=== PATIENT | male | born 1960 | race Hispanic/Latino ===

== ENCOUNTER 2023-05-05 15:46 | Inpatient (IN) | payer OTHER, SELFPAY ==
[2023-05-05 16:30] LABS: Hematocrit 35.8 % (42.0-52.0); Hemoglobin 12.3 g/dL (14.0-18.0); Manual Diff?? YES; Mean Corpuscular HGB CONC 34.4 g/dL (32.0-36.0); Mean Corpuscular Hemoglobin 27.8 pg (27.0-31.0); Mean Platelet Volume 10.2 fL (7.4-10.4); Platelet Count 614 10x3/uL (130-400); RBC Distribution Width 12.7 % (11.5-14.5); Red Blood Cell (RBC) Count 4.42 mill/uL (4.70-6.10); White Blood Cell (WBC) Count 26.6 10x3/uL (4.8-10.8)
[2023-05-05 16:34] LABS: Delete Auto Diff?? YES
[2023-05-05 16:53] LABS: Band 2 % (5-11); CellaVision Operator ID LAB.KB; Eosinophils 1 % (0-10); Lymphocytes 1 % (21-51); Monocytes 1 % (0-10); Neutrophil 95 % (42-75); Platelet Adequacy Comment Platelets Increased; Polychromasia SLIGHT = 2-3 cells HPF (0-2); Total Cell Count 101
[2023-05-05 17:02] LABS: ALT (SGPT) 66 U/L (8-55); AST (SGOT) 72 U/L (5-34); Albumin 2.6 g/dL (3.5-5.0); Alkaline Phosphatase 265 U/L (40-110); Anion Gap 13 mmol/L (10-20); BUN (Urea Nitrogen) 34 mg/dL (8.4-25.7); Bilirubin, Total 0.6 mg/dL (0.2-1.2); Calc. Creatinine Clearance 0 mL/min (70-130); Calcium 8.4 mg/dL (7.8-10.44); Carbon Dioxide 30 mmol/L (22-29); Chloride 85 mmol/L (98-107); Estimated GFR 58; Globulin 5.2 g/dL (2.4-3.5); Glucose 328 mg/dL (70-105); Potassium 3.8 mmol/L (3.5-5.1); Protein, Total 7.8 g/dL (6.0-8.3); Sodium 124 mmol/L (136-145)
[2023-05-05] MEDS ORDERED: Vancomycin 1 GM/200 ML (FROZEN) BAG ONE (18:04)
[2023-05-05] MEDS ORDERED: Cefepime 2 GM VIAL ONE (18:04)
[2023-05-05] MEDS ORDERED: Ondansetron PF 4 MG/2 ML Vial IVP PRN (18:48)
[2023-05-05] MEDS ORDERED: Glucagon 1 MG/ML KIT IM PRN (18:48)
[2023-05-05] MEDS ORDERED: Dextrose 50% Abboject 50 ML SYRINGE SLOW IVP PRN (18:48)
[2023-05-05] MEDS ORDERED: Dextrose 5% in Water 1,000 ML IV PRN (18:48)
[2023-05-05 18:58] LABS: Bacteria/HPF 1+ HPF (None Seen); Bilirubin Negative (Negative); Blood, Urine 3+ (Negative); CAUTI Indications for Culture Alt mental st,lethar; Clarity Turbid (Clear); Glucose, Urine (Dipstick) Greater than 1000 mg/dL (Negative); Ketone, Urine Negative (Negative); Leukocyte 500 Leu/uL (Negative); Nitrite 2+ (Negative); Protein, Urine (Dipstick) 70 mg/dL (Neg-Trace); RBC/HPF Greater than 50 HPF (0-3); Specific Gravity, Urine 1.015 (1.002-1.036); Squamous Epithelial 0-3 HPF (0-3); Urobilinogen Normal mg/dL (Less than 2); WBC/HPF Greater than 50 HPF (0-3); pH, Urine 6.5 (5.0-9.0)
[2023-05-05 18:59] LABS: Urine Culture Reflex Yes Yes
[2023-05-05] MEDS: Sodium Chloride 0.9% 1,000 ML IV SCH (22:35)
[2023-05-05] MEDS: Heparin 5,000 UNITS/ML VIAL SC SCH (22:36)
[2023-05-05 22:53] VITALS: BMI 22.4
[2023-05-05] MEDS: Acetaminophen 500 MG TAB PO SCH (23:26)
[2023-05-06 00:29] LABS: Anion Gap 10 mmol/L (10-20); BUN (Urea Nitrogen) 26 mg/dL (8.4-25.7); Calc. Creatinine Clearance 65 mL/min (70-130); Calcium 7.7 mg/dL (7.8-10.44); Carbon Dioxide 26 mmol/L (22-29); Chloride 93 mmol/L (98-107); Estimated GFR 79; Glucose 296 mg/dL (70-105); Potassium 3.5 mmol/L (3.5-5.1); Sodium 125 mmol/L (136-145)
[2023-05-06] MEDS: Cefepime 1 GM in Sodium Chloride 0.9% 100 ML IVPB SCH (04:06)
[2023-05-06] MEDS ORDERED: Electrolyte Replacement Protocol 1 EACH FS SCH (05:00)
[2023-05-06] MEDS: HumaLOG 300 UNITS/3 ML VIAL SC PRN (05:39)
[2023-05-06 06:05] LABS: Hematocrit 32.2 % (42.0-52.0); Hemoglobin 10.7 g/dL (14.0-18.0); Manual Diff?? YES; Mean Corpuscular HGB CONC 33.2 g/dL (32.0-36.0); Mean Corpuscular Hemoglobin 27.6 pg (27.0-31.0); Mean Corpuscular Volume 83.2 fl (78.0-98.0); Mean Platelet Volume 10.5 fL (7.4-10.4); Platelet Count 594 10x3/uL (130-400); Red Blood Cell (RBC) Count 3.87 mill/uL (4.70-6.10); White Blood Cell (WBC) Count 25.4 10x3/uL (4.8-10.8)
[2023-05-06 06:26] LABS: Delete Auto Diff?? YES
[2023-05-06 06:38] LABS: ALT (SGPT) 52 U/L (8-55); AST (SGOT) 51 U/L (5-34); Albumin 2.1 g/dL (3.5-5.0); Alkaline Phosphatase 219 U/L (40-110); Anion Gap 10 mmol/L (10-20); BUN (Urea Nitrogen) 26 mg/dL (8.4-25.7); Bilirubin, Total 0.6 mg/dL (0.2-1.2); Calc. Creatinine Clearance 73 mL/min (70-130); Calcium 7.6 mg/dL (7.8-10.44); Carbon Dioxide 27 mmol/L (22-29); Chloride 94 mmol/L (98-107); Estimated GFR 90; Globulin 4.4 g/dL (2.4-3.5); Glucose 181 mg/dL (70-105); Iron Binding Capacity, Total 108 mcg/dL (261-462); Potassium 3.1 mmol/L (3.5-5.1); Protein, Total 6.5 g/dL (6.0-8.3); Sodium 128 mmol/L (136-145)
[2023-05-06 06:49] LABS: CellaVision Operator ID lab.abc; Lymphocytes 1 % (21-51); Monocytes 5 % (0-10); Neutrophil 94 % (42-75); Platelet Adequacy Comment Platelets Increased; RBC Morphology Within Normal Limits; Total Cell Count 100
[2023-05-06 07:49] LABS: Iron 13 ug/dL (65-175)
[2023-05-06] MEDS: Insulin Glargine 30 UNITS/0.3 ML VIAL SC SCH (08:54)
[2023-05-06] MEDS: Magnesium 2 GM/50 ML(in water) 2 GM in Premix 1 BAG IVPB SCH (08:55)
[2023-05-06] MEDS: Potassium Chloride 20 MEQ TAB PO SCH (08:55)
[2023-05-06] MEDS: FLU VACC QS2023-24(6MOS UP)/PF 60 MCG/0.5 ML SYRINGE IM ONE (08:56)
[2023-05-06] MEDS ORDERED: Magnevist 469MG/ML 20 ML VIAL ONE ×3 (11:16)
[2023-05-06] MEDS: Ondansetron ODT 4 MG TAB PO PRN (11:24)
[2023-05-06] MEDS: Vancomycin 1 GM in Premix 1 BAG IVPB SCH (13:22)
[2023-05-06 13:59] LABS: Acetaminophen Less than 10 mcg/mL (10.0-30.0); Alcohol Less than 10.0 mg/dL (Less than 10); Salicylate Less than 8.0 mg/dL (15.0-30.0)
[2023-05-06] MEDS ORDERED: Vancomycin (BATCH) 1.25 GM in Premix 1 BAG IVPB SCH (15:00)
[2023-05-06] MEDS: Acetaminophen 325 MG TAB PO PRN (17:05)
[2023-05-06] MEDS: Cefepime 2 GM in Sodium Chloride 0.9% 100 ML IVPB SCH (17:06)
[2023-05-06] MEDS ORDERED: Thrombin 5000 UNITS/5 ML VIAL ONE (18:47)
[2023-05-06 22:18] LABS: Amphetamine Detected (NotDetected); Barbiturates Screen Not Detected (NotDetected); Benzodiazepine Screen Not Detected (NotDetected); Cocaine Metabolite Screen Not Detected (NotDetected); Methadone Not Detected (NotDetected); Methamphetamine Detected (NotDetected); Opiate Screen Not Detected (NotDetected); Oxycodone Screen Not Detected (NotDetected); Phencyclidine (PCP) Not Detected (NotDetected); THC/Cannabinoid Screen Not Detected (NotDetected); Tricyclic Screen Not Detected (NotDetected)
[2023-05-07 06:02] LABS: #Eosinphils 0.1 thou/uL (0.0-0.7); #Monocytes 1.1 thou/uL (0.11-0.59); #Neutrophils 18.1 thou/uL (1.40-6.50); %Basophils 0.1 % (0.0-1.0); %Eosinophils 0.3 % (0.0-10.0); %Monocytes 5.2 % (0.0-10.0); %Neutrophils 86.5 % (42.0-75.0); Hematocrit 30.7 % (42.0-52.0); Hemoglobin 10.3 g/dL (14.0-18.0); Mean Corpuscular HGB CONC 33.6 g/dL (32.0-36.0); Mean Corpuscular Hemoglobin 27.8 pg (27.0-31.0); Mean Corpuscular Volume 82.7 fl (78.0-98.0); Mean Platelet Volume 10.1 fL (7.4-10.4); Platelet Count 549 10x3/uL (130-400); RBC Distribution Width 13.2 % (11.5-14.5); Red Blood Cell (RBC) Count 3.71 mill/uL (4.70-6.10); White Blood Cell (WBC) Count 20.9 10x3/uL (4.8-10.8)
[2023-05-07 06:22] LABS: INR-International Normal Ratio 1.4; Prothrombin Time 16.8 sec (12.0-14.7)
[2023-05-07 06:23] LABS: PTT 48.8 sec (22.9-36.1)
[2023-05-07 06:26] LABS: Anion Gap 8 mmol/L (10-20); BUN (Urea Nitrogen) 17 mg/dL (8.4-25.7); Calc. Creatinine Clearance 83 mL/min (70-130); Calcium 7.6 mg/dL (7.8-10.44); Carbon Dioxide 28 mmol/L (22-29); Chloride 93 mmol/L (98-107); Estimated GFR 100; Glucose 123 mg/dL (70-105); Potassium 3.3 mmol/L (3.5-5.1); Sodium 126 mmol/L (136-145)
[2023-05-07] MEDS: Potassium Chloride 20 MEQ TAB PO SCH (08:03)
[2023-05-07] MEDS ORDERED: Rocuronium Bromide 10 MG/ML (10ML VIAL) ONE (10:04)
[2023-05-07] MEDS ORDERED: PROPOFOL 20 ML ONE (10:04)
[2023-05-07] MEDS ORDERED: fentaNYL PF 100 MCG/2 ML SYRINGE ONE ×2 (10:04→14:00)
[2023-05-07] MEDS ORDERED: Lidocaine 1% PF 5 ML VIAL ONE (10:04)
[2023-05-07] MEDS ORDERED: HYDROmorphone 2 MG/ML VIAL ONE (10:29)
[2023-05-07] MEDS ORDERED: Ondansetron PF 4 MG/2 ML Vial ONE ×2 (10:30→13:49)
[2023-05-07] MEDS ORDERED: SUGAMMADEX SODIUM 200 MG/2 ML VIAL ONE ×2 (10:30→13:49)
[2023-05-07] MEDS ORDERED: ePHEDrine Sulfate 50 MG/10 ML VIAL ONE ×2 (11:11→12:43)
[2023-05-07] MEDS ORDERED: Vancomycin 1 GM VIAL ONE (11:40)
[2023-05-07] MEDS ORDERED: Thrombin 5000 UNITS/5 ML VIAL ONE (11:40)
[2023-05-07] MEDS ORDERED: PHENYLEPHRINE-NS 100 MCG/ML 10 ML SYRINGE ONE (12:39)
[2023-05-07] MEDS ORDERED: Calcium Chloride 1 GM/10 ML Abboject SYRINGE ONE (12:51)
[2023-05-07] MEDS ORDERED: Dexamethasone 4 mg/ml Vial ONE (13:49)
[2023-05-07] MEDS ORDERED: diphenhydrAMINE 25 MG CAP PO PRN (14:51)
[2023-05-07] MEDS ORDERED: Milk Of Magnesia 30 ML UDCUP PO PRN (14:51)
[2023-05-07] MEDS ORDERED: tiZANidine HCl 4 MG TAB PO PRN (14:55)
[2023-05-07] MEDS: metroNIDAZOLE 500 MG in Premix 1 BAG IVPB SCH (17:36)
[2023-05-07] MEDS: Cefepime 2 GM in Sodium Chloride 0.9% 100 ML IVPB SCH (18:53)
[2023-05-08] MEDS: HYDROcodone/Acetaminophen 5/325 mg Tablet PO PRN (00:41)
[2023-05-08 00:48] LABS: Vancomycin, Trough 20.7 ug/mL
[2023-05-08 06:29] LABS: #Monocytes 0.9 thou/uL (0.11-0.59); #Neutrophils 14.1 thou/uL (1.40-6.50); %Basophils 0.1 % (0.0-1.0); %Eosinophils 0.1 % (0.0-10.0); %Lymphocytes 7.6 % (21.0-51.0); %Monocytes 5.4 % (0.0-10.0); %Neutrophils 85.9 % (42.0-75.0); Hematocrit 26.4 % (42.0-52.0); Hemoglobin 8.8 g/dL (14.0-18.0); Mean Corpuscular HGB CONC 33.3 g/dL (32.0-36.0); Mean Corpuscular Hemoglobin 27.9 pg (27.0-31.0); Mean Corpuscular Volume 83.8 fl (78.0-98.0); Mean Platelet Volume 10.3 fL (7.4-10.4); Platelet Count 480 10x3/uL (130-400); RBC Distribution Width 13.3 % (11.5-14.5); Red Blood Cell (RBC) Count 3.15 mill/uL (4.70-6.10); White Blood Cell (WBC) Count 16.4 10x3/uL (4.8-10.8)
[2023-05-08 06:46] LABS: Anion Gap 10 mmol/L (10-20); BUN (Urea Nitrogen) 25 mg/dL (8.4-25.7); Calc. Creatinine Clearance 81 mL/min (70-130); Calcium 7.5 mg/dL (7.8-10.44); Carbon Dioxide 23 mmol/L (22-29); Chloride 96 mmol/L (98-107); Estimated GFR 99; Glucose 272 mg/dL (70-105); Potassium 4.4 mmol/L (3.5-5.1); Sodium 125 mmol/L (136-145)
[2023-05-08] MEDS: Morphine 2 MG/ML VIAL SLOW IVP PRN (10:04)
[2023-05-08] MEDS: Enoxaparin 40 MG (0.4 mL) SYRINGE SC SCH (12:49)
[2023-05-08] MEDS: HumaLOG 300 UNITS/3 ML VIAL SC PRN (13:00)
[2023-05-08] MEDS ORDERED: CEFAZOLIN 2 GM in Sodium Chloride 0.9% 100 ML IVPB SCH (14:00)
[2023-05-08] MEDS: CEFAZOLIN 2 GM in Sodium Chloride 0.9% 100 ML IVPB SCH (14:37)
[2023-05-09 05:18] LABS: #Eosinphils 0.1 thou/uL (0.0-0.7); #Monocytes 1.1 thou/uL (0.11-0.59); #Neutrophils 14.1 thou/uL (1.40-6.50); %Basophils 0.2 % (0.0-1.0); %Eosinophils 0.5 % (0.0-10.0); %Lymphocytes 9.7 % (21.0-51.0); %Monocytes 6.3 % (0.0-10.0); %Neutrophils 82.2 % (42.0-75.0); Hemoglobin 9.6 g/dL (14.0-18.0); Mean Corpuscular HGB CONC 33.1 g/dL (32.0-36.0); Mean Corpuscular Hemoglobin 27.5 pg (27.0-31.0); Mean Corpuscular Volume 83.1 fl (78.0-98.0); Mean Platelet Volume 10.2 fL (7.4-10.4); RBC Distribution Width 13.4 % (11.5-14.5); Red Blood Cell (RBC) Count 3.49 mill/uL (4.70-6.10); White Blood Cell (WBC) Count 17.1 10x3/uL (4.8-10.8)
[2023-05-09 05:47] LABS: Anion Gap 11 mmol/L (10-20); BUN (Urea Nitrogen) 20 mg/dL (8.4-25.7); Calc. Creatinine Clearance 85 mL/min (70-130); Calcium 7.4 mg/dL (7.8-10.44); Carbon Dioxide 25 mmol/L (22-29); Chloride 98 mmol/L (98-107); Estimated GFR 101; Glucose 83 mg/dL (70-105); Potassium 3.6 mmol/L (3.5-5.1); Sodium 130 mmol/L (136-145)
[2023-05-09 06:22] LABS: Platelet Count 610 10x3/uL (130-400)
[2023-05-09] MEDS: Enoxaparin 40 MG (0.4 mL) SYRINGE SC SCH (08:51)
[2023-05-09] MEDS: Losartan 25 MG TAB PO SCH (09:05)
[2023-05-09] MEDS: Senokot S 8.6-50 MG TAB PO SCH ×2 (16:19→21:26)
[2023-05-09] MEDS: Polyethylene Glycol 3350 17 GM Packet PO SCH (16:19)
[2023-05-09] MEDS: hydrALAZINE 20 MG/ML VIAL SLOW IVP PRN (16:23)
[2023-05-10 04:53] LABS: #Eosinphils 0.1 thou/uL (0.0-0.7); #Monocytes 0.8 thou/uL (0.11-0.59); %Basophils 0.1 % (0.0-1.0); %Eosinophils 0.8 % (0.0-10.0); %Lymphocytes 7.4 % (21.0-51.0); %Monocytes 5.3 % (0.0-10.0); Hematocrit 26.9 % (42.0-52.0); Hemoglobin 8.6 g/dL (14.0-18.0); Mean Corpuscular Hemoglobin 27.7 pg (27.0-31.0); Mean Platelet Volume 11.1 fL (7.4-10.4); RBC Distribution Width 13.5 % (11.5-14.5); Red Blood Cell (RBC) Count 3.11 mill/uL (4.70-6.10); White Blood Cell (WBC) Count 14.1 10x3/uL (4.8-10.8)
[2023-05-10 05:00] LABS: Mean Corpuscular Volume 86.5 fl (78.0-98.0); Platelet Count 376 10x3/uL (130-400)
[2023-05-10 05:15] LABS: Anion Gap 8 mmol/L (10-20); BUN (Urea Nitrogen) 18 mg/dL (8.4-25.7); Calc. Creatinine Clearance 92 mL/min (70-130); Carbon Dioxide 27 mmol/L (22-29); Chloride 96 mmol/L (98-107); Estimated GFR 103; Glucose 177 mg/dL (70-105); Potassium 3.4 mmol/L (3.5-5.1); Sodium 128 mmol/L (136-145)
[2023-05-10] MEDS ORDERED: Vancomycin 2 GM in Sodium Chloride 0.9% 500 ML IVPB SCH (05:55)
[2023-05-10] MEDS: Vancomycin (BATCH) 1.5 GM in Premix 1 BAG IVPB SCH (06:47)
[2023-05-10] MEDS: Potassium Chloride 20 MEQ TAB PO SCH (08:57)
[2023-05-10] MEDS: Polyethylene Glycol 3350 17 GM Packet PO SCH (08:59)
[2023-05-10] MEDS: Acetaminophen/Codeine 30-300mg Tablet PO PRN (09:50)
[2023-05-10] MEDS: Vancomycin 1 GM in Premix 1 BAG IVPB SCH (17:32)
[2023-05-11 05:43] LABS: #Eosinphils 0.1 thou/uL (0.0-0.7); #Monocytes 0.8 thou/uL (0.11-0.59); #Neutrophils 13.5 thou/uL (1.40-6.50); %Basophils 0.2 % (0.0-1.0); %Eosinophils 0.9 % (0.0-10.0); %Lymphocytes 9.8 % (21.0-51.0); %Neutrophils 82.6 % (42.0-75.0); Hematocrit 27.4 % (42.0-52.0); Hemoglobin 8.8 g/dL (14.0-18.0); Mean Corpuscular HGB CONC 32.1 g/dL (32.0-36.0); Mean Corpuscular Hemoglobin 27.2 pg (27.0-31.0); Mean Corpuscular Volume 84.8 fl (78.0-98.0); Mean Platelet Volume 9.5 fL (7.4-10.4); Platelet Count 562 10x3/uL (130-400); RBC Distribution Width 13.6 % (11.5-14.5); Red Blood Cell (RBC) Count 3.23 mill/uL (4.70-6.10); White Blood Cell (WBC) Count 16.4 10x3/uL (4.8-10.8)
[2023-05-11 06:03] LABS: Anion Gap 9 mmol/L (10-20); BUN (Urea Nitrogen) 15 mg/dL (8.4-25.7); Calc. Creatinine Clearance 93 mL/min (70-130); Calcium 7.3 mg/dL (7.8-10.44); Carbon Dioxide 27 mmol/L (22-29); Chloride 96 mmol/L (98-107); Estimated GFR 103; Glucose 74 mg/dL (70-105); Sodium 128 mmol/L (136-145)
[2023-05-11 17:29] LABS: Vancomycin, Trough 23.5 ug/mL
[2023-05-12] MEDS: Vancomycin HCl 750 MG in Sodium Chloride 0.9% 250 ML 250 ML IVPB SCH ×2 (05:40→21:10)
[2023-05-12 05:48] LABS: %Eosinophils 2.1 % (0.0-10.0); %Lymphocytes 10.3 % (21.0-51.0); %Monocytes 6.2 % (0.0-10.0); %Neutrophils 79.6 % (42.0-75.0); Hematocrit 26.3 % (42.0-52.0); Hemoglobin 8.6 g/dL (14.0-18.0); Mean Corpuscular HGB CONC 32.7 g/dL (32.0-36.0); Mean Corpuscular Hemoglobin 27.7 pg (27.0-31.0); Mean Corpuscular Volume 84.6 fl (78.0-98.0); Mean Platelet Volume 9.5 fL (7.4-10.4); Platelet Count 593 10x3/uL (130-400); RBC Distribution Width 13.7 % (11.5-14.5); Red Blood Cell (RBC) Count 3.11 mill/uL (4.70-6.10); White Blood Cell (WBC) Count 13.3 10x3/uL (4.8-10.8)
[2023-05-12 05:49] LABS: #Eosinphils 0.3 thou/uL (0.0-0.7); #Monocytes 0.8 thou/uL (0.11-0.59); #Neutrophils 10.6 thou/uL (1.40-6.50); %Basophils 0.2 % (0.0-1.0)
[2023-05-12] MEDS ORDERED: Vancomycin HCl 750 MG in Sodium Chloride 0.9% 250 ML 250 ML IVPB SCH (18:00)
[2023-05-12 19:47] LABS: Vancomycin, Trough 16.3 ug/mL
[2023-05-13 04:47] LABS: #Eosinphils 0.4 thou/uL (0.0-0.7); #Monocytes 0.7 thou/uL (0.11-0.59); #Neutrophils 7.3 thou/uL (1.40-6.50); %Basophils 0.2 % (0.0-1.0); %Eosinophils 3.4 % (0.0-10.0); %Lymphocytes 18.5 % (21.0-51.0); %Monocytes 6.9 % (0.0-10.0); %Neutrophils 68.9 % (42.0-75.0); Hematocrit 25.6 % (42.0-52.0); Hemoglobin 8.4 g/dL (14.0-18.0); Mean Corpuscular HGB CONC 32.8 g/dL (32.0-36.0); Mean Corpuscular Hemoglobin 27.6 pg (27.0-31.0); Mean Corpuscular Volume 84.2 fl (78.0-98.0); Mean Platelet Volume 9.4 fL (7.4-10.4); Platelet Count 584 10x3/uL (130-400); RBC Distribution Width 13.5 % (11.5-14.5); Red Blood Cell (RBC) Count 3.04 mill/uL (4.70-6.10); White Blood Cell (WBC) Count 10.6 10x3/uL (4.8-10.8)
[2023-05-13] MEDS ORDERED: Sodium Bicarbonate 2.5 MEQ/5 ML SDV ONE (07:49)
[2023-05-13] MEDS ORDERED: Lidocaine 1% PF 5 ML VIAL ONE (07:49)
[2023-05-14 04:48] LABS: #Basophils 0.1 thou/uL (0.0-0.2); #Eosinphils 0.4 thou/uL (0.0-0.7); #Monocytes 0.8 thou/uL (0.11-0.59); #Neutrophils 8.5 thou/uL (1.40-6.50); %Basophils 0.4 % (0.0-1.0); %Eosinophils 3.1 % (0.0-10.0); %Lymphocytes 15.7 % (21.0-51.0); %Monocytes 6.6 % (0.0-10.0); %Neutrophils 72.6 % (42.0-75.0); Hematocrit 24.9 % (42.0-52.0); Hemoglobin 8.2 g/dL (14.0-18.0); Mean Corpuscular HGB CONC 32.9 g/dL (32.0-36.0); Mean Corpuscular Hemoglobin 27.8 pg (27.0-31.0); Mean Corpuscular Volume 84.4 fl (78.0-98.0); Mean Platelet Volume 9.1 fL (7.4-10.4); Platelet Count 557 10x3/uL (130-400); RBC Distribution Width 13.7 % (11.5-14.5); Red Blood Cell (RBC) Count 2.95 mill/uL (4.70-6.10); White Blood Cell (WBC) Count 11.8 10x3/uL (4.8-10.8)
[2023-05-14 09:10] LABS: Vancomycin, Trough 13.7 ug/mL
[2023-05-15 20:44] LABS: #Eosinphils 0.4 thou/uL (0.0-0.7); #Monocytes 0.7 thou/uL (0.11-0.59); #Neutrophils 8.1 thou/uL (1.40-6.50); %Basophils 0.3 % (0.0-1.0); %Eosinophils 3.8 % (0.0-10.0); %Lymphocytes 15.7 % (21.0-51.0); %Monocytes 6.3 % (0.0-10.0); %Neutrophils 72.8 % (42.0-75.0); Hematocrit 24.2 % (42.0-52.0); Hemoglobin 7.9 g/dL (14.0-18.0); Mean Corpuscular HGB CONC 32.6 g/dL (32.0-36.0); Mean Corpuscular Hemoglobin 27.8 pg (27.0-31.0); Mean Corpuscular Volume 85.2 fl (78.0-98.0); Mean Platelet Volume 10.4 fL (7.4-10.4); Platelet Count 452 10x3/uL (130-400); RBC Distribution Width 13.8 % (11.5-14.5); Red Blood Cell (RBC) Count 2.84 mill/uL (4.70-6.10); White Blood Cell (WBC) Count 11.1 10x3/uL (4.8-10.8)
[2023-05-15 21:10] LABS: Vancomycin, Trough 13.5 ug/mL
[2023-05-15] MEDS: Vancomycin 1 GM in Premix 1 BAG IVPB SCH (21:50)
[2023-05-16 07:24] LABS: #Eosinphils 0.4 thou/uL (0.0-0.7); #Monocytes 0.7 thou/uL (0.11-0.59); #Neutrophils 7.9 thou/uL (1.40-6.50); %Basophils 0.4 % (0.0-1.0); %Lymphocytes 13.4 % (21.0-51.0); %Monocytes 6.5 % (0.0-10.0); %Neutrophils 74.9 % (42.0-75.0); Hematocrit 26.4 % (42.0-52.0); Hemoglobin 8.6 g/dL (14.0-18.0); Mean Corpuscular HGB CONC 32.6 g/dL (32.0-36.0); Mean Corpuscular Hemoglobin 27.4 pg (27.0-31.0); Mean Corpuscular Volume 84.1 fl (78.0-98.0); Mean Platelet Volume 8.9 fL (7.4-10.4); RBC Distribution Width 13.7 % (11.5-14.5); Red Blood Cell (RBC) Count 3.14 mill/uL (4.70-6.10); White Blood Cell (WBC) Count 10.6 10x3/uL (4.8-10.8)
[2023-05-16 07:44] LABS: Platelet Count 578 10x3/uL (130-400)
[2023-05-16 07:49] LABS: Anion Gap 12 mmol/L (10-20); BUN (Urea Nitrogen) 15 mg/dL (8.4-25.7); Calc. Creatinine Clearance 74 mL/min (70-130); Calcium 8.4 mg/dL (7.8-10.44); Carbon Dioxide 28 mmol/L (22-29); Chloride 92 mmol/L (98-107); Estimated GFR 92; Glucose 149 mg/dL (70-105); Potassium 4.1 mmol/L (3.5-5.1); Sodium 128 mmol/L (136-145)
[2023-05-17 05:22] LABS: #Basophils 0.1 thou/uL (0.0-0.2); #Eosinphils 0.6 thou/uL (0.0-0.7); #Monocytes 0.7 thou/uL (0.11-0.59); #Neutrophils 7.9 thou/uL (1.40-6.50); %Basophils 0.5 % (0.0-1.0); %Eosinophils 5.4 % (0.0-10.0); %Lymphocytes 15.7 % (21.0-51.0); %Monocytes 6.4 % (0.0-10.0); %Neutrophils 71.2 % (42.0-75.0); Hematocrit 27.7 % (42.0-52.0); Mean Corpuscular HGB CONC 32.5 g/dL (32.0-36.0); Mean Corpuscular Hemoglobin 27.2 pg (27.0-31.0); Mean Corpuscular Volume 83.7 fl (78.0-98.0); Mean Platelet Volume 9.1 fL (7.4-10.4); Platelet Count 608 10x3/uL (130-400); RBC Distribution Width 13.6 % (11.5-14.5); Red Blood Cell (RBC) Count 3.31 mill/uL (4.70-6.10); White Blood Cell (WBC) Count 11.1 10x3/uL (4.8-10.8)
[2023-05-17 08:29] LABS: Vancomycin, Trough 20.8 ug/mL
[2023-05-17] MEDS ORDERED: Acetaminophen/Codeine 30-300mg Tablet PO PRN (12:00)
[2023-05-17] MEDS: Acetaminophen 325 MG TAB PO SCH (14:58)
[2023-05-17 17:05] VITALS: BP 141/77; TEMP 98.4
[2023-05-17] MEDS: DAPTOmycin 500 MG in Sodium Chloride 0.9% 50 ML IVPB SCH (17:21)
== END 2023-05-17 18:40 | disposition home or self-care (01) | DRG 853 ==
LOC: ERS 15:46 → ERHOLD 18:09 → 2NO 22:08 → SURG A 05-10 23:18
PROVIDERS: ADMIT Internal Medicine; ATTEND Internal Medicine
PROC: 3E03329 Introduction of Other Anti-infective into Peripheral Vein, Percutaneous Approach (ICD-10-PCS; 2023-05-06)
PROC: 009U0ZZ Drainage of Spinal Canal, Open Approach (ICD-10-PCS; principal; 2023-05-07)
PROC: 01NB0ZZ Release Lumbar Nerve, Open Approach (ICD-10-PCS; 2023-05-07)
DX: A41.9 Sepsis, unspecified organism (principal); G06.2 Extradural and subdural abscess, unspecified; E87.1 Hypo-osmolality and hyponatremia; N39.0 Urinary tract infection, site not specified; N17.9 Acute kidney failure, unspecified; G83.4 Cauda equina syndrome; E11.65 Type 2 diabetes mellitus with hyperglycemia; Z79.899 Other long term (current) drug therapy; Z79.01 Long term (current) use of anticoagulants; Z79.4 Long term (current) use of insulin; I10 Essential (primary) hypertension; Z89.022 Acquired absence of left finger(s); Z83.3 Family history of diabetes mellitus; F17.210 Nicotine dependence, cigarettes, uncomplicated; D64.9 Anemia, unspecified; F15.10 Other stimulant abuse, uncomplicated; K59.00 Constipation, unspecified
CPT/HCPCS: 36415; 36416; 36569; 71045; 72156; 72157; 72158; 80048; 80053; 80202; 80306; 80307; 81001; 82565; 82728; 83540; 83550; 83605; 83735; 85025; 85610; 85730; 86850; 86900; 86901; 87040; 87070; 87077; 87086; 87149; 87186; 87205; 93005; 96374; 96375; A4314; A9579; C1751; J0360; J0692; J0878; J1100; J1170; J1644; J1650; J1815; J2272; J2405; J2704; J3370; J3370-JW; J3475; J3490; J7050; Q0162